=== PATIENT | male | born 1985 | race Caucasian/White ===

== ENCOUNTER 2020-03-09 17:07 | Emergency (ER) | payer OTHER, SELFPAY ==
[~2020-03-09] VITALS: Ht 177.8 cm; Wt 104.3 kg
[2020-03-09 17:27] VITALS: BP 158/103
--- NOTE | 2020-03-09 17:31 | NUR ---
C/O COUGH, SORE THROAT,CHEST PAIN X 3 DAYS. FATHER IN LAW COVID TEST POSITIVE. MED HX: DENIES
--- NOTE | 2020-03-09 17:40 | NUR ---
COVID SWAB DONE.
--- NOTE | 2020-03-09 18:44 | NUR ---
Patient discharged with v/s stable. Written and verbal after care instructions given and explained. Patient alert, oriented and verbalized understanding of instructions. Ambulatory with steady gait. All questions addressed prior to discharge. ID band removed. Patient advised to follow up with PMD. Rx of IBUPROFEN & PROMETHAZINE given. Patient educated on indication of medication including possible reaction and side effects. Opportunity to ask questions provided and answered.
[2020-03-09 18:46] VITALS: BP 132/90
== END 2020-03-09 18:44 | disposition home or self-care (01) ==
LOC: MED 17:07 → EEVIPCON 17:07 → MED 18:44
DX: B34.9 Viral infection, unspecified (principal); F12.90 Cannabis use, unspecified, uncomplicated; R07.9 Chest pain, unspecified; Z20.828 Contact with and (suspected) exposure to other viral communicable diseases
CPT/HCPCS: 99283; U0003

== ENCOUNTER 2020-04-14 20:19 | Emergency (ER) | payer OTHER, SELFPAY ==
[~2020-04-14] VITALS: Ht 177.8 cm; Wt 99.8 kg
[2020-04-14 20:35] VITALS: BP 123/84
--- NOTE | 2020-04-14 20:40 | NUR ---
PT TO A/W IN TENT FOR MEDICAL EVALUATION. PT WEARING MASK.
--- NOTE | 2020-04-14 21:58 | NUR ---
COLLECTED COVID SWAB AND SENT TO LAB.
--- NOTE | 2020-04-14 22:00 | NUR ---
PT ASSESSED AND EVALUATED BY NORMA GARDINER.
[2020-04-14 22:42] VITALS: BP 123/84
== END 2020-04-14 22:42 | disposition home or self-care (01) ==
LOC: MED 20:19
DX: J02.9 Acute pharyngitis, unspecified (principal); R05 Cough; M79.10 Myalgia, unspecified site; F17.210 Nicotine dependence, cigarettes, uncomplicated; Z20.828 Contact with and (suspected) exposure to other viral communicable diseases; Z90.49 Acquired absence of other specified parts of digestive tract; Z90.09 Acquired absence of other part of head and neck
CPT/HCPCS: 99283; U0003